=== PATIENT | male | born 1970 | race Caucasian/White ===

== ENCOUNTER → 2024-06-29 | Outpatient (CLI) | payer BC, OTHER ==
--- NOTE | 2024-07-21 13:52 | US ---
EXAMINATION TYPE: US thyroid st tissue head/neck DATE OF EXAM: 07/21/2024 COMPARISON: 01/10/2023 CLINICAL INDICATION: Male, 53 years old with history of E04.1 nodule; Radioactive iodine 20 years ago . On thyroid meds. No symptoms. GLAND SIZE: Right Lobe: 3.0 x 0.9 x 1.5 cm Overall Parenchyma: heterogeneous Left Lobe: 2.3 x 1.3 x 0.9 cm Overall Parenchyma: heterogeneous Isthmus Thickness: 0.2 cm NODULES RIGHT: # of nodules measured on right: 0 LEFT: # of nodules measured on left: 0 ISTHMUS: # of nodules measured in the isthmus: 0 Bilateral neck scanned, no evidence of lymphadenopathy. IMPRESSION: 1. No thyroid nodules. 2. Heterogenous thyroid echotexture correlate first with serum markers for thyroiditis.
== END | disposition home or self-care (01) ==
LOC: RADUSWWP 11:21
PROVIDERS: ATTEND Family Medicine
DX: E04.1 Nontoxic single thyroid nodule (principal); E06.9 Thyroiditis, unspecified
CPT/HCPCS: 76536